=== PATIENT | male | born 1945 | race Caucasian/White ===

== ENCOUNTER 2025-07-19 06:00 | Day surgery (SDC) | payer MEDICARE, MEDICAID ==
[2025-07-18 10:31] LABS: MEAN PLATELET VOLUME 7.9 FL (7.4-10.4); RED CELL DISTRIBUTION WIDTH 16.1 % (11.5-14.5)
[2025-07-18 10:47] LABS: INR 1.2 INR
[2025-07-18 10:52] LABS: CREATININE 1.12 MG/DL (0.60-1.10); TOTAL CARBON DIOXIDE 24.3 MMOL/L (24-32); eGFR 63 ML/MIN
[~2025-07-19] VITALS: Ht 170.2 cm; Wt 119.7 kg
[~2025-07-19 06:00] MED LIST: AMIO200T76 PO; APIX5TAB3 PO; ASPI-611 PO; ATOR40TA71 PO; CARV6.253 PO; DOCU100C40 PO; HYDR-4353 PO; LISI10TA27 PO; LORA10TA65 PO
[2025-07-19] MEDS ORDERED: amiodarone 150mg/dext, iso-os 100 ML IV ONE (06:40)
[2025-07-19] MEDS ORDERED: MIDAZolam 1mg/ml 10ml vial IV ONE (06:40)
[2025-07-19] MEDS ORDERED: morphine 10mg/ml inj. IV ONE (06:40)
[2025-07-19] MEDS ORDERED: normal saline 1000ml 1,000 ML IV SCH (06:40)
[2025-07-19] MEDS ORDERED: atropine 0.1mg/ml 10ml syringe IV ONE (06:40)
[2025-07-19] MEDS ORDERED: LEVO50TA8 PO (06:44)
[2025-07-19] MEDS ORDERED: CARV3.12 PO (06:44)
--- NOTE | 2025-07-19 06:45 | ELECTROCARDIOGRAPH REPORT ---
[facility] Test Date: 2025-07-19 Test Time: 06:43:35 Pat Name: CARLOS BASILIO Department: [facility] Patient ID: [facility]-[id number] Room: Gender: M Mems Device Scientist: KARLOS : 1945 Requested By: SHANNA CHIRINOS Order Number: [id number] Reading MD: Dr. Deb León Measurements Intervals [place] Rate: 90 P: 0 IN: 0 QRS: -19 QRSD: 142 T: -36 QT: 443 QTc: 542 Interpretive Statements Atrial flutter Ventricular bigeminy Right bundle branch block Electronically Signed On 07-19-2025 9:23:[address] Deb León Please click the below link to view image of tracing.
[2025-07-19 07:24] VITALS: BP 115/64; PULSE 77; RESP 16; TEMP 98; O2SAT 97
[2025-07-19] MEDS ORDERED: midazolam 1 mg/ML 2ml injection ONE ×2 (07:49→08:05)
[2025-07-19] MEDS ORDERED: fentaNYL/PF 50MCG/1 ML 2ML syringe ONE (07:49)
[2025-07-19] MEDS ORDERED: amiodarone 50MG/ML inj IV ONE (07:49)
[2025-07-19] MEDS ORDERED: atropine 0.1mg/ml 10ml syringe ONE (07:50)
[2025-07-19 08:29] VITALS: BP 126/60; PULSE 68; RESP 16; O2SAT 96
[2025-07-19 08:44] VITALS: BP 117/66; PULSE 68; RESP 16; O2SAT 96
--- NOTE | 2025-07-19 08:46 | ELECTROCARDIOGRAPH REPORT ---
[facility] Test Date: 2025-07-19 Test Time: 08:44:46 Pat Name: CARLOS BASILIO Department: [facility] Patient ID: [facility]-[id number] Room: Gender: M Occasional Caregiver: KARLOS : 1945 Requested By: SHANNA CHIRINOS Order Number: [id number] Reading MD: Dr. Deb León Measurements Intervals [place] Rate: 79 P: 52 MI: 262 QRS: -7 QRSD: 137 T: -13 QT: 454 QTc: 521 Interpretive Statements Sinus rhythm Ventricular bigeminy Prolonged MI interval Right bundle branch block Electronically Signed On 07-19-2025 9:23:[address] Deb León Please click the below link to view image of tracing.
--- NOTE | 2025-07-19 08:50 | CARDIOLOGY REPORT ---
DATE OF SERVICE: 07/19/2025 DICTATING PHYSICIAN: KENROY Stern MD ELECTRICAL CARDIOVERSION REPORT PRIMARY PHYSICIAN: [facility], Mandi Paz. FILM COLOR TESTER: KENROY Stern MD INDICATION: The patient is a 80-year-old male with diabetes, hypertension, hyperlipidemia, obesity, sleep apnea, CAD, CABG x [address] Bernal in 12/2016 with a history of atrial flutter/fibrillation. The patient was found to have a new onset atrial flutter on 06/08/2025. He was started on amiodarone and Eliquis. The patient is already on carvedilol 3.125 p.o. b.i.d. After discussing risks, benefits, and alternative options, the patient prefers to proceed with electrical cardioversion. DESCRIPTION OF PROCEDURE: Anterior and posterior pads were used. Using biphasic electrical energy, 200 joules x 1, converted to normal sinus rhythm, remained in normal sinus rhythm. IMPRESSION: A 80-year-old with persistent atrial fibrillation/flutter converted to normal sinus rhythm. Continue amiodarone 200 mg once a day and Eliquis and carvedilol. RECOMMENDATIONS: Diet, weight loss, and exercise program. The patient has been noncompliant with CPAP. Recommended to be compliant and follow up with the sleep specialist. KENROY Stern MD TID: [id number] RECEIPT: [id number] SINTIA/GUERITA/SIXTO cc: Mandi Paz
[2025-07-19 09:01] VITALS: BP 120/64; PULSE 60; RESP 16; O2SAT 97
== END 2025-07-19 09:10 | disposition home or self-care (01) ==
LOC: SSTAY O 06:00
PROVIDERS: ATTEND Internal Medicine Cardiovascular Disease
DX: I48.91 Unspecified atrial fibrillation (principal); I48.92 Unspecified atrial flutter; E11.9 Type 2 diabetes mellitus without complications; E66.9 Obesity, unspecified; E78.5 Hyperlipidemia, unspecified; G47.33 Obstructive sleep apnea (adult) (pediatric); I10 Essential (primary) hypertension; I25.10 Atherosclerotic heart disease of native coronary artery without angina pectoris; I44.0 Atrioventricular block, first degree; I45.10 Unspecified right bundle-branch block; Z79.899 Other long term (current) drug therapy; Z95.1 Presence of aortocoronary bypass graft; Z90.49 Acquired absence of other specified parts of digestive tract; Z82.49 Family history of ischemic heart disease and other diseases of the circulatory system; Z80.9 Family history of malignant neoplasm, unspecified
CPT/HCPCS: 36415; 80048; 85025; 85610; 92960; 93005; J0282; J0461; J2250; J3010; J7030; Z7610; 99152